=== PATIENT | female | born 2000 | race Caucasian/White ===

== ENCOUNTER 2024-08-09 08:57 | Emergency (ER) | payer OTHER, SELFPAY ==
[2024-08-09 09:08] VITALS: BP 148/91; PULSE 70; RESP 18; TEMP 36.9; O2SAT 99
--- NOTE | 2024-08-09 09:44 | DI.CT_ITS ---
Exam(s) CT HEAD CERV SPINE FACIAL WO EXAM: CT HEAD CERV SPINE FACIAL WO CLINICAL HISTORY: fall 10 steps. TECHNIQUE: Imaging Protocol: Axial computed tomography images with coronal and sagittal reformatted images were created and reviewed COMPARISON: No exams were available for comparison FINDINGS: CT BRAIN: There are no skull fractures some mucosal thickening is noted in the left maxillary sinus, not associ ated with fluid level. There is no evidence of intracranial hemorrhage, mass effect, or shift of midline structures. There are no extra-axial fluid collections. The ventricles are not enlarged or shifted and there is no blo od within the ventricular system nor within the basal cisterns. CT MAXILLOFACIAL BONES: There is no evidence of facial fractures nor evidence of orbital blowout fracture. There is some muc osal thickening in the floor of the left maxillary sinus. No evidence of fracture of the sinus. No evidence of nasal bone fractures. Mandibles intact. TM joints intact. Orbits unremarkable. CT CERVICAL SPINE: There is no evidence of fracture nor listhesis. No significant prevertebral soft tissue swelling. N o facet malalignment evident. No significant osseous lesions evident. IMPRESSION: No acute intracranial findings on this noninfused CT scan of the brain. No evidence of facial nor orbital blowout fractures.Incidentally noted is mucosal thickening in left maxillary sinus. No evidence of sinus fracture. No evidence of cervical spine fracture, malalignment, nor acute compromise of the cervical spinal can al. Report called by myself to ER 08/09/2024 at 11:01 a.m. RADIATION DOSE DELIVERED: 1,488.32mGy.cm Total DLP DATA REPOSITORY: All CT scans at this facility are submitted to the National Radiology Data Registry (NRDR) Dose Index Registry (DIR) with the [employer] (ACR). RADIATION OPTIMIZATION: All CT scans at this facility use at least one of these dose optimization te chniques: automated exposure control; mA and/or kV adjustment per patient size (includes targeted exa ms where dose is matched to clinical indication); or iterative reconstruction.
--- NOTE | 2024-08-09 09:44 | ED.GENADUL_ITS ---
Discharge Plan Disposition Patient Disposition: Home Condition: Good Discharge Details Clinical Impression: Facial trauma, Abrasion of face, Contusion of face, Fall Primary Care Provider: Randi Domingo ED Provider: Fara Govea Home Meds and New Rx's Prescriptions: Continued One-A-Day -1 27 mg iron- 800 mcg-235 mg capsule 1 cap PO DAILY Unisom (doxylamine) 25 mg tablet 25 mg PO QHS PRN Discharge Instructions Instructions: General Trauma, Adult ED Additional Instructions: Your imaging is reassuring, no evidence of fracture, dislocation or internal bleeding. Please continue with Tylenol for discomfort. Encourage gentle range of motion. Heat or ice may also help with discomfort. Please encourage brain rest- plenty of sleep and fluids. Please monitor wounds for signs of infection including increased pain, redness, fevers/chills, discharge. If you develop these or other new/worsening symptoms, please seek care urgently once again. If you develop increased headache, vomiting, visual change or other new/worsneing symptoms, please seek care urgently once again. Please keep upcoming appointment for reevaluation. Referrals: Cyn Cantor MD [ [facility]FF [facility]YSICIAN] - Randi Domingo [Primary Care Provider] - Discharge Data Discharge Date/Time-TO BE ENTERED AT DEPARTURE: 08/09/24 11:28 HPI General Date/Time Provider Initiated Documentation: 08/09/24 09:27 . Limitations to Documentation: no limitations . Information obtained by: patient, family and RN notes reviewed . History of Present Illness 23 year old F presents to the emergency department with the chief complaint of face trauma, headache after fall down stairs, described as moderate, Quality is described as aching, and is localized to the head and face. Patient started experiencing this hour(s) and it has been constant. No relieving factors improve symptom(s), No exacerbating factors reported . Patient notes headaches; denies chest pain, cough, fever/chills, loss of appetite, malaise, nausea/vomiting, seizure, shortness of breath, syncope and weakness. Patient did receive the following treatments prior to arrival, none Related Data Home Medications ?Medication ?Instructions ?Recorded ?Confirmed vit 168-iron 27 mg-folic 1 cap PO DAILY 07/18/24 08/09/24 acid 800 mcg-omega3 235 mg capsule (One-A-Day -1) doxylamine succinate 25 mg tablet 25 mg PO QHS PRN 08/01/24 08/09/24 (Unisom (doxylamine)) Allergies Allergy/AdvReac Type Severity Reaction Status Date / Time shrimp Allergy Other (See Verified 08/09/24 09:10 Comment) General Stated Complaint: Fall/Non TraumaCriteria RADHA: 3 Review of Systems Constitutional Constitutional: Reports as per HPI, Denies chills, Denies fever(s), Reports headache(s) and Denies weakness Eyes Eyes: Reports as per HPI, Denies blurry vision and Denies change in vision ENT Ears, Nose, Mouth, and Throat: Reports headache(s) and Denies neck pain Cardiovascular Cardiovascular: Reports as per HPI, Denies chest pain, Denies lightheadedness, Denies radiating jaw, neck or arm pain, Denies dyspnea and Denies dyspnea on exertion Respiratory Respiratory: Reports as per HPI, Denies chest congestion, Denies cough, Denies dyspnea and Denies dyspnea on exertion Gastrointestinal Gastrointestinal: Reports as per HPI, Denies abdominal pain, Denies change in bowel habits, Denies nausea and Denies vomiting Musculoskeletal Musculoskeletal: Reports as per HPI, Denies back pain, Denies myalgias, Denies muscle cramps, Denies neck pain and Denies numbness Integumentary/Breasts Skin/Breast: Reports as per HPI and Denies rash Neurologic Neurologic: Reports as per HPI, Denies abnormal movements, Denies abnormal speech, Reports headache(s), Denies localized weakness, Denies numbness, Denies sensory deficit and Denies weakness Exam Const General: cooperative, healthy appearing, uncomfortable, no acute distress, well developed and well groomed Nutritional Appearance: average body habitus and well nourished Orientation: alert, awake and oriented x3 [facility] Head: normal to inspection, no palpable skull fracture and normocephalic Ears: hearing grossly normal bilaterally, external ears normal and TM's normal bilaterally General nose exam: external nose normal Face images: 2 1. [id number] abrasion, no active bleeding, swelling around this area 2. superficial abrasion Mouth: oral mucosae normal, oropharynx normal, moist mucous membranes, No mouth trauma, no muffled voice and No restricted motion Teeth and gingiva: dentition normal and gingiva normal Throat: posterior oropharynx normal Eyes General: appearance normal, both eyes and all related structures Alignment and Position: alignment normal Periorbital: periorbital findings normal Eyelids: eyelids normal Sclera: sclerae normal Cornea: corneas normal Pupils: PERRL EOM: EOM intact bilaterally Neck Neck: normal visual inspection, full ROM and no meningeal signs Resp Effort & Inspection: normal respiratory effort, able to speak in complete sentences and no respiratory distress Auscultation: clear to auscultation bilaterally, no rales, no rhonchi and no wheezes Cardio Rate: regular rate Rhythm: regular rhythm Heart Sounds: S1 normal and S2 normal GI Inspection: normal to inspection and non-distended Palpation: soft, not firm, no guarding and nontender Back/Spine/Pelvis Cervical Spine: normal cervical lordosis and cervical ROM normal Thoracic/Lumbar Spine: thoracic and lumbar spine normal to inspection, No thoracic spinal tenderness and No lumbar spinal tenderness Skin General skin exam: no rashes or lesions noted Neuro General: patient alert, patient awake and patient oriented x3 Cranial Nerves: CN's II-XI intact bilaterally Cognition: normal cognition Speech: speech normal Gait: normal gait Motor: muscle tone normal throughout, strength 5/5 throughout, no pronator drift, no movement abnormalities noted and no fasciculations Sensory Exam: no sensory deficits noted Coordination: [id number]-qn-[id number] test normal and fonl-dw-roch test normal Course Vital Signs Vital signs: Vital Signs Temperature 36.9 C 08/09/24 09:08 Pulse 70 08/09/24 09:08 Respiratory Rate 18 08/09/24 09:08 Blood Pressure 148/91 H 08/09/24 09:08 Pulse Oximetry 99 08/09/24 09:08 Temperature 36.9 C 08/09/24 09:08 Temperature Source Temporal Artery Scan 08/09/24 09:08 Pulse 70 08/09/24 09:08 Respiratory Rate 18 08/09/24 09:08 Blood Pressure 148/91 H 08/09/24 09:08 Blood Pressure Position Sitting 08/09/24 09:08 Pulse Oximetry 99 08/09/24 09:08 Oxygen Delivery Method Room Air 08/09/24 09:08 Oxygen Flow Rate 0 08/09/24 09:08 Pain Level 2 08/09/24 09:08 Medical Decision Making Patient is a pleasant 23-year-old female, estimated 9 weeks gestation, brought in by significant other, presenting with chief complaint of head and face pain after falling down 10 steps. Patient reports that she was walking into her car in her crocs this morning when she slipped and fell down about 10 steps landing directly on the right side of her face. She suffered abrasion to the right side of the lower aspect of her jaw and a laceration that is curvilinear around the right zygomatic arch from where her glasses pushed into her face. She denies any visual changes. She states that she has been ambulatory and has not noted any neurologic dysfunction. She denies any visual changes. No nausea or vomiting. She denies any chest pain, shortness of breath, difficulty breathing. No abdominal pain, incontinence of stool or urine, vaginal discharge or cramping. She has not noted any weakness or sensory deficits. States that she continues to have a headache primarily along the left side of her head as well as jaw pain, particular with movement along the left side of her jaw. Patient reports UTD on tetanus. On exam, patient appears nontoxic. She is hemodynamically stable. Neurologic exam is intact. She does have a curvilinear abrasion as well as superficial road rash abrasion under the right side of the jaw. She is swollen on the right side of her face in between these areas but pain is primarily elicited with movement palpation over the left side of the jaw. Not appreciate any difficulty with movement or significant deformity. Bite test is intact. She does not have any palpable skull fractures. No evidence of basilar skull fracture. No midline C-spine tenderness, full range of motion. No pain elsewhere about the spine or with palpation about the chest, abdomen, pelvis. Pelvis is stable and nontender. While patient is , with the negatives of injury as well as the worsening headache, considered intracranial hemorrhage. Also considered facial fracture and will obtain CT. We did discuss risk and benefits of this and patient agrees to move forward. IMPRESSION: No acute intracranial findings on this noninfused CT scan of the brain. No evidence of facial nor orbital blowout fractures.Incidentally noted is mucosal thickening in left maxillary sinus. No evidence of sinus fracture. No evidence of cervical spine fracture, malalignment, nor acute compromise of the cervical spinal canal. Discussed these findings with the patient and her significant other. We discussed supportive care. Abrasions superficial does not require any type of closure. Given the gestational age, unlikely to find any type of heart rate, I do not see indication for ultrasound at this time. We did discuss strict return precautions for this. 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 Strict return precautions were discussed for head injury. Encouraged brain rest. All of her questions and concerns were addressed and patient is in agreement with this plan. This documentation was generated using Emp[employer] dictation system, please disregard any oddities of phrase or misspellings. Quality:SDOH Health Related Social Needs: 2 No Data to Display PFSH All Active Problems (Updated 08/09/24 @ 11:20 by RACHNA Pereira) Fall (Acute) Contusion of face (Acute) Abrasion of face (Acute) Facial trauma (Acute) (Acute) Family History (Updated 07/18/24 @ 09:57 by Corrie Pina CNM) Maternal Grandfather Diabetes Social History (Updated 07/18/24 @ 10:41 by Mago Hoang) Smoking/Tobacco Use Status: Never Smoking risk assessment performed?: Yes Alcohol Intake: former Drug use: Never Substance use type: does not use Household members: significant other Housing: apartment What is your relationship status?: living with partner How often do you attend hoahaoism or gnosticist services?: decline to answer Panel score (0-1 are the most socially isolated patients): 1 What type of physical activity do you participate in: none Do you feel safe at home: Yes Female Reproductive History Menstrual Duration of menses: 3-5 days control method: none History History 2 1 Para Hx # Term Pregnancies Multiple births Hx # Pregnancies Ectopic pregnancies AB induced Hx Number of Living Children AB spontaneous
[2024-08-09] MEDS: Acetaminophen 325 MG TAB 650 MG PO (10:35)
[2024-08-09 11:28] VITALS: BP 132/80; PULSE 106; RESP 18; O2SAT 99
== END 2024-08-09 11:28 | disposition home or self-care (01) ==
PROVIDERS: Emergency Provider Physician Assistant; PCP Nurse Practitioner Family
DX: S00.83XA Contusion of other part of head, initial encounter (principal); W10.8XXA Fall (on) (from) other stairs and steps, initial encounter; S00.81XA Abrasion of other part of head, initial encounter; O26.891 Other specified pregnancy related conditions, first trimester
CPT/HCPCS: 99284; 70450; 70486; 72125; 99283

== ENCOUNTER 2024-08-29 02:57 | Outpatient (CLI) | payer OTHER, SELFPAY ==
[2024-08-29 16:33] LABS: Panorama Kit Sent via Fed Ex
[2024-08-29 16:46] LABS: HCT 35.6 % (36.0-46.0); HGB 12.5 g/dL (11.2-15.7); MCHC 35.1 % (32.0-36.0); MCV 86 fL (80-95); MPV 9.6 fL (8.0-11.0); Platelet Count 227 10^3/uL (130-400); RBC 4.16 10^6/uL (3.93-5.22); RDW 12.1 % (11.7-14.6); RDW-SD 37.6 fL; WBC 10.68 10^3/uL (4.4-10.8)
[2024-08-29 18:43] LABS: ALT 22 U/L (14-59); AST 15 U/L (15-37); Alkaline Phosphatase 53 U/L (46-116); Anion Gap 10.1 mmol/L (3-11); BUN 9 mg/dL (7-18); Bilirubin, Total 0.3 mg/dL (0.2-1.0); CO2 25.9 mmol/L (21.0-32.0); CREATININE 0.6 mg/dL (0.55-1.02); Calcium 9.2 mg/dL (8.5-10.1); Chloride 104 mmol/L (98-107); Estimated GFR 129.27 (mL/min/1.73m2); Glucose 84 mg/dL (74-106); Potassium 3.4 mmol/L (3.5-5.1); Sodium 140 mmol/L (136-145); Total Protein 7.3 g/dL (6.4-8.2); Uric Acid 3.1 mg/dL (2.6-6.0)
[2024-09-01 10:19] LABS: HIV-1/2 Ag & Ab Screen Negative (Negative)
[2024-09-02 09:41] LABS: Rubella IgG Ab (UVM) Positive (See Note); Varicella IgG Antibody Positive (See Note)
[2024-09-02 11:55] LABS: Hepatitis B Surface Ag Negative (Negative)
[2024-09-02 12:33] LABS: Hepatitis C Ab w Rflx HCV PCR Negative (Negative)
[2024-09-02 14:10] LABS: AFP 12.3 ng/mL; Calculated age at EDD 24 years; Cigarette smoking status non-Smoker; GA used in risk estimate Dates estimate; IVF Pregnancy No; Initial or repeat testing Initial testing; Insulin dependent diabetes No; Maternal Weight 189 lbs; Number of Fetuses 1; Prev Pregnancy w/NTD No
[2024-09-02 15:54] LABS: Syphilis IgG w/Reflex Nonreactive (Nonreactive)
[2024-09-12 17:13] LABS: Result Summary NEGATIVE; Specimen WB Whole Blood
== END 2024-08-29 02:58 | disposition home or self-care (01) ==
PROVIDERS: PCP Nurse Practitioner Family; Visit Provider Advanced Practice Midwife
DX: Z34.91 Encounter for supervision of normal pregnancy, unspecified, first trimester
CPT/HCPCS: 36415; 80053; 81220; 81222; 85027; 86787; 86803; 86850; 86900; 86901; 87340; 87389; 82105; 83036; 84443; 84550; 86762; 86780

== ENCOUNTER 2024-08-29 15:54 | Outpatient (REF) | payer OTHER, SELFPAY ==
[2024-08-29 16:37] LABS: COMMENT (LAB VIEW ONLY) 67.59 mg/dL; PROTEIN 8.4 mg/dL; Prot/Crea Ur Ratio 0.12
[2024-09-02 12:45] LABS: Chlamydia Result Negative (Negative); GC Result Negative (Negative)
== END 2024-08-29 15:55 | disposition home or self-care (01) ==
LOC: LBN 15:54
PROVIDERS: PCP Nurse Practitioner Family; Visit Provider Advanced Practice Midwife
DX: Z34.91 Encounter for supervision of normal pregnancy, unspecified, first trimester
CPT/HCPCS: 87491; 87591; 82565; 84156; 87086

== ENCOUNTER 2024-09-25 02:58 | Outpatient (CLI) | payer OTHER, SELFPAY ==
[2024-09-26 16:14] LABS: AFP 23.3 ng/mL; Calculated age at EDD 24 years; Cigarette smoking status non-Smoker; GA used in risk estimate Dates estimate; IVF Pregnancy No; Initial or repeat testing Initial testing; Insulin dependent diabetes No; Maternal Weight 189 lbs; Number of Fetuses 1; Physician Phone Number 802-748-7300; Prev Pregnancy w/NTD No; RECOMMENDED FOLLOW UP None.; Results Summary Normal risk
== END 2024-09-25 02:59 | disposition home or self-care (01) ==
LOC: LBO 02:58
PROVIDERS: Advanced Practice Midwife; PCP Nurse Practitioner Family; Visit Provider Advanced Practice Midwife
DX: Z34.91 Encounter for supervision of normal pregnancy, unspecified, first trimester (principal)
CPT/HCPCS: 36415; 82105

== ENCOUNTER 2024-11-21 07:15 | Emergency (ER) | payer OTHER, SELFPAY ==
[2024-11-21 07:16] VITALS: BP 144/81; PULSE 81; RESP 17; TEMP 36.8; O2SAT 100
--- NOTE | 2024-11-21 07:21 | ED.GENADUL_ITS ---
Discharge Plan Disposition Patient Disposition: Admit to [facility] Discharge Details Clinical Impression: Vaginal bleeding in Primary Care Provider: Randi Domingo ED Provider: Yevgeniy Lin Home Meds and New Rx's Prescriptions: Continued One-A-Day -1 27 mg iron- 800 mcg-235 mg capsule 1 cap PO DAILY Unisom (doxylamine) 25 mg tablet 25 mg PO QHS PRN Discharge Data Discharge Date/Time-TO BE ENTERED AT DEPARTURE: 11/21/24 09:04 HPI General Date/Time Provider Initiated Documentation: 11/21/24 07:21 . HPI Narrative: MDM This is an overall very well-appearing very mildly hypertensive but not tachycardic 23-year-old G1, P0 at 24 weeks with vaginal bleeding for which patient will receive type and screen to assess need for RhoGAM and CBC to assess for anemia. Patient has had previous ultrasound in the system showing a si ngle intrauterine with a gestational age of 19 weeks 5 days as completed last month. As result I am not concerned with placenta previa. No history of IV drug use to suggest increased risk for placental abruption. Patient is approximately 24 weeks so we will touch base with the midwives as patient may require nonstress test and monitoring. No vaginal trauma to suggest benefit from speculum exam. Patient having mild cramping so my suspicion for uterine rupture is low. No sudden villarreal of fluid to suggest labor. No pain with bleeding to suggest vasa previa. Reassuring heart rate making my suspicion low for intrauterine demise. 9 AM Patient had a reassuring hemoglobin. I was in touch with Dr. Baltazar from the obstetrical team who graciously agreed to accept the patient upstairs for ongoing monitoring. Will send patient with her IV in place. History of Present Illness The patient presents for evaluation of vaginal bleeding and cramping. Patient is a at 24 weeks with vaginal bleeding, necessitating the use of a light pad that requires changing approximately every hour. The bleeding is more pronounced during urination. She has not experienced any episodes of syncope. She reports intermittent lower abdominal cramping. She is not on any anticoagulant therapy and does not have a history of diabetes or hypertension. She has not experienced any trauma to the abdomen, respiratory distress, or headaches. She reports a sensation of impending vomiting but has not actually vomited. She has not consumed any food. She does not have any chest pain. This is her first experience of such symptoms during her current . She follows with the midwives and has had reassuring ultrasounds thus far. Exam General: Well-appearing in no acute distress speaking in complete sentences. Head: Normocephalic, atraumatic. Eye: Extraocular eye movements intact. No conjunctival injection. No scleral icterus. Ear, nose, mouth, throat: Grossly normal inspection. Normal voice, handling secretions normally. Neck: Trachea midline. Cardiovascular: Well-perfused distal extremities. Respiratory: Nonlabored respiration. Gastrointestinal: Nondistended abdomen. Soft. Gravid uterus. Nontender. No gross vaginal bleeding observed on external inspection with patient wearing underwear on the stretcher. Musculoskeletal: No edema. Moving all 4 extremities spontaneously. Skin: Normal for age and race, grossly normal temperature and turgor. No acute rash. Neurologic: Alert and appropriate, no apparent acute deficits. Psychiatric: Mood and manner are appropriate. Grooming and personal hygiene are appropriate. 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 Course Vital Signs Vital signs: Vital Signs Temperature 36.8 C 11/21/24 07:16 Pulse 81 11/21/24 07:16 Respiratory Rate 17 11/21/24 07:16 Blood Pressure 144/81 H 11/21/24 07:16 Pulse Oximetry 100 11/21/24 07:16 Temperature 36.8 C 11/21/24 07:16 Temperature Source Oral 11/21/24 07:16 Pulse 81 11/21/24 07:16 Respiratory Rate 17 11/21/24 07:16 Blood Pressure 144/81 H 11/21/24 07:16 Blood Pressure Position Sitting 11/21/24 07:16 Pulse Oximetry 100 11/21/24 07:16 Oxygen Delivery Method Room Air 11/21/24 07:16 Oxygen Flow Rate 0 11/21/24 07:16 Pain Level 8 11/21/24 07:16 Medical Decision Making Quality:SDOH Health Related Social Needs: No Data to Display PFSH All Active Problems (Updated 11/21/24 @ 12:26 by Isela Baltazar MD) delivery (Acute) Spontaneous @24.4wks Family history of defect (Acute) FOB with unilateral kidney agenesis FOB's sibling stillborn with bilateral kidney agenesis first cousin with microcephaly Elevated BP without diagnosis of hypertension (Acute) 08/09/24: 140s/90s Medical History (Updated 11/21/24 @ 12:26 by Isela Baltazar MD) labor Family History (Updated 08/29/24 @ 14:49 by Corrie Pina CNM) Maternal Grandfather Diabetes Paternal Grandfather Diabetes Father Diabetes Social History (Updated 08/29/24 @ 14:56 by Corrie Pina CNM) Smoking/Tobacco Use Status: Never Smoking risk assessment performed?: Yes Alcohol Intake: former Drug use: Never Substance use type: does not use Household members: significant other Housing: house Education Level: high school Do you need help understanding health information?: Never 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) Pets and animals: Yes (3 dogs) Sexually active: Yes Do you think of yourself as: straight/heterosexual Current gender identity: female What is your relationship status?: living with partner How often do you attend mandaeism or presybeterian services?: decline to answer Panel score (0-1 are the most socially isolated patients): 1 What type of physical activity do you participate in: none Special neville needs: No Seatbelt use: always Helmet use: Yes Do you feel safe at home: Yes Do you feel safe in your relationship?: Yes Victim of physical abuse: No Victim of emotional abuse: No Victim of sexual abuse: No Female Reproductive History Menstrual Age of Menarche: 13 Duration of menses: 3-5 days control method: none History History 1 Para 0 Hx # Term Pregnancies 0 Multiple births 0 Hx # Pregnancies 0 Ectopic pregnancies 0 AB induced 0 Hx Number of Living Children 0 AB spontaneous 0 POCUS Exam (ED) Limited OB Exam DATE OF EXAM:: 11/21/24 TIME OF EXAM:: 07:39 PROVIDER THAT PERFORMED THE STUDY: Yevgeniy Lin IS THIS A REPEAT EXAM DURING THIS ENCOUNTER: No Type of Exam: Pelvic OB Trans Abdominal REASON FOR EXAM: Vaginal Bleeding Exam Complete ( heart rate 154 bpm.). INCIDENTAL FINDINGS: heart rate 154 bpm Limited Pelvic Exam DATE OF EXAM: 11/21/24 TIME OF EXAM: 07:30 PROVIDER THAT PERFORMED THE STUDY: Yevgeniy Lin IS THIS A REPEAT EXAM DURING THIS ENCOUNTER: No Type of Exam: Pelvic Trans Abdominal Exam REASON FOR EXAM: Other indication: VISUALIZED STRUCTURES: Uterus PERTINENT FINDINGS/IMPRESSION: Other impression: heart rate [ ] beats per minute Exam Complete
[2024-11-21 07:55] LABS: Abs Immature Grans 0.08 10^3/uL (0.0-0.06); Absolute Basophil Count 0.03 10^3/uL (0.0-0.2); Absolute Monocyte Count 0.93 10^3/uL (0.1-0.8); Absolute Neutrophil Count 13.99 10^3/uL (1.2-6.7); Basophils % 0.2 %; Eosinophils % 0.4 %; HCT 33.4 % (36.0-46.0); HGB 11.4 g/dL (11.2-15.7); Immature Grans % 0.5 %; Lymphocytes % 6.2 %; MCH 29.7 pg (27.0-33.0); MCHC 34.1 % (32.0-36.0); MCV 87 fL (80-95); MPV 9.3 fL (8.0-11.0); Monocytes % 5.8 %; Neutrophils % 86.9 %; Platelet Count 175 10^3/uL (130-400); RBC 3.84 10^6/uL (3.93-5.22); RDW 11.9 % (11.7-14.6); RDW-SD 37.8 fL
[2024-11-21 07:56] LABS: Absolute Eosinophil Count 0.06 10^3/uL (0.0-0.7)
[2024-11-21 08:36] LABS: BUN 8 mg/dL (7-18); CREATININE 0.4 mg/dL (0.55-1.02); Calcium 8.7 mg/dL (8.5-10.1); Chloride 102 mmol/L (98-107); Estimated GFR 142.54 (mL/min/1.73m2); Glucose 90 mg/dL (74-106); HCG Quant, Pregnancy 8812 mIU/mL (1-3); Potassium 3.4 mmol/L (3.5-5.1); Sodium 137 mmol/L (136-145)
[2024-11-21 09:06] VITALS: BP 115/57; PULSE 72; RESP 16; TEMP 36.8; O2SAT 98
== END 2024-11-21 09:04 | disposition short-term general hospital (02) ==
PROVIDERS: Emergency Provider Emergency Medicine; PCP Nurse Practitioner Family
DX: O26.852 Spotting complicating pregnancy, second trimester (principal); Z3A.24 24 weeks gestation of pregnancy
CPT/HCPCS: 36415; 76815; 76857; 80048; 86850; 86900; 86901; 99284; 84702; 85025

== ENCOUNTER 2024-11-21 10:17 | Inpatient (IN) | payer OTHER, SELFPAY ==
[2024-11-21] VITALS (11 sets, daily range): BP systolic 111–129; BP diastolic 65–84; PULSE 71–106; RESP 16; TEMP 36.9
--- NOTE | 2024-11-21 10:10 | PLAC_PTH ---
PATIENT: Abi Alonso LOC: OBS U#:[id number] AGE/SX: 23/F ROOM: OBS.303 RE11/21/[address]: Isela Baltazar MD : 2000 BED: A DIS: 11/21/2024 SPEC #: [id number] RECD: 11/21/24 13:08 STATUS: MARIZA REQ #: [id number] SAMIRA: 11/21/24 10:[address]: Isela Baltazar DEPT: Surgical Specimen RECD BY: Marlee Novak ENTERED: 11/21/24 13:09 SP TYPE: PLAC OTHR DR: Randi Domingo Tissues: 1 - PLACENTA (NOT 3RD TRIMESTER) Procedures: GROSS AND MICRO LEVEL 4 Comments: [id number]
[2024-11-21 10:50] LABS: HCT 33.7 % (36.0-46.0); HGB 11.6 g/dL (11.2-15.7); MCH 30.1 pg (27.0-33.0); MCHC 34.4 % (32.0-36.0); MCV 88 fL (80-95); MPV 9.4 fL (8.0-11.0); Platelet Count 175 10^3/uL (130-400); RBC 3.85 10^6/uL (3.93-5.22); RDW 11.9 % (11.7-14.6); RDW-SD 38.3 fL; WBC 17.48 10^3/uL (4.4-10.8)
--- NOTE | 2024-11-21 10:58 | W.PM.OBHPL1 ---
Date of service: 11/21/24 Time of Service: 09:45 Assessment and Plan Assessment and plan (1) labor: Status: Acute Assessment and plan: P0 @24.4wks in labor s/p ROM with impending delivery. Rh neg. Peds, supervisor finishing room, anesthesia, NICU notified. Preparations for delivery made. OB-HPI Labor/Delivery History of Present Illness Reason for Visit: labor Chief Complaint: Suspected Rupture of Membranes , Associated Signs and Symptoms of Suspected ROM: gush of blood tinged fluid ; Vaginal Bleeding , Associated Signs and Symptoms of Vaginal Bleeding: spotting. PHIL Calculator Estimated Delivery Date Method WG Current Estimate 03/09/25 LMP (Certain) Other Estimates 03/14/25 Ultrasound #1 Infant Delivery Date-Baby A 11/21/24 24w 4d Comments: Pt reports having spotting x1 yesterday and the day before. Then overnight last night she was feeling a little crampy. This am she noticed a little more bleeding and put a pad on and went to the ED. She was evaluated in the ED and found to be stable so the plan was to transfer to the center for monitoring. As she stood up to move to the wheelchair she experienced a gush of blood-tinged fluid. By arrival to L&D she had soaked through a pad. Her contractions became much stronger after that. History of Present Expected Delivery Route/Plan - CNM FOB - Francis (first child) BG Specific Issues/Plan 1. elevated BP(x1) without HTN diagnosis - Baseline CMP & pr/cr=nml, Baby ASA 12 wks 2. FOB with kidney agensis and fam hx microcephaly. MFM consult + Level 2 US ordered 3. Family hx diabetes, [id number]=4.0 4. AFP drawn at 12+3 wks, redraw at 16 wks=nml risk for NTD 5. cfDNA low risk female, CF negative Review of Systems Genitourinary Genitourinary: Reports system reviewed and no additional complaints, except as documented PFSH All Active Problems (Updated 11/21/24 @ 12:11 by Isela Baltazar MD) labor (Acute) Family history of defect (Acute) FOB with unilateral kidney agenesis FOB's sibling stillborn with bilateral kidney agenesis first cousin with microcephaly Elevated BP without diagnosis of hypertension (Acute) 08/09/24: 140s/90s Medical History (Updated 11/21/24 @ 12:11 by Isela Baltazar MD) Family History (Updated 08/29/24 @ 14:49 by Corrie Pina CNM) Maternal Grandfather Diabetes Paternal Grandfather Diabetes Father Diabetes Social History (Updated 08/29/24 @ 14:56 by Corrie Pina CNM) Smoking/Tobacco Use Status: Never Smoking risk assessment performed?: Yes Alcohol Intake: former Drug use: Never Substance use type: does not use Household members: significant other Housing: house Education Level: high school Do you need help understanding health information?: Never 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) Pets and animals: Yes (3 dogs) Sexually active: Yes Do you think of yourself as: straight/heterosexual Current gender identity: female What is your relationship status?: living with partner How often do you attend protestant or anabaptism services?: decline to answer Panel score (0-1 are the most socially isolated patients): 1 What type of physical activity do you participate in: none Special neville needs: No Seatbelt use: always Helmet use: Yes Do you feel safe at home: Yes Do you feel safe in your relationship?: Yes Victim of physical abuse: No Victim of emotional abuse: No Victim of sexual abuse: No Female Reproductive History Menstrual Age of Menarche: 13 Duration of menses: 3-5 days control method: none History History 1 Para 0 Hx # Term Pregnancies 0 Multiple births 0 Hx # Pregnancies 0 Ectopic pregnancies 0 AB induced 0 Hx Number of Living Children 0 AB spontaneous 0 Meds Allergies and Home Medications Allergies Allergy/AdvReac Type Severity Reaction Status Date / Time shrimp Allergy Other (See Verified 11/21/24 07:21 Comment) Home Medications ?Medication ?Instructions ?Recorded ?Confirmed ?Type vit 168-iron 27 mg-folic 1 cap PO DAILY 07/18/24 11/21/24 History acid 800 mcg-omega3 235 mg capsule (One-A-Day -1) doxylamine succinate 25 mg tablet 25 mg PO QHS PRN 08/01/24 11/21/24 History (Unisom (doxylamine)) Exam Physical Exam Vital signs: Pulse BP 78 111/76 11/21/24 10:50 11/21/24 10:50 Vital Signs Reviewed: Yes Detailed Labor and Delivery Exam Maxwell Score: Cervical Points Exam 0 1 2 3 Dilation Closed 1-2cm 3-4 cm 5-6cm Effacement 0-30% 40-50% 60-70% 80% Consistency Firm Medium Soft Station -3 -2 -1,0 +1,+2 Position Posterior Mid Anterior Comments: Fetus A Date of Membrane Rupture: 11/21/24 Time of Membrane Rupture: 09:20 Assessment Note: Intermittent heart rate checks found to be 150-170 Detailed HEENT Exam Head: Present normocephalic and atraumatic Detailed Abdominal Exam Comments: gravid, nontender Detailed Exam Comments: On insertion of the speculum there was bloody fluid. After it was swabbed out, the head was noted and found to be at +2 station. Detailed Neurological Exam Neurological: Present alert, oriented X3 and CN II-XII intact DetailedPsychiatric Exam Psychiatric: Present normal affect, normal thought process and cooperative Results Results Group Beta Strep: Not Done Blood Type: B+ Rubella Status: Immune Varicella Immunity: Immune Abnormal Lab Findings: Abnormal Labs 11/21/24 10:38 WBC 17.48 H RBC 3.85 L Hct 33.7 L Risk Assessment Risk for Shoulder Dystocia Historical/Initial OB: POSITIVE FOR: Pre- BMI>30 Risk for Pre-Eclampsia Date Initiated/Initials: to start at 12 wks. Yes, if one or more: NEGATIVE FOR: Hx Pre-E/Gest HTN, Chronic HTN, Multiple Gestation, Pre-gestational DM, Renal Disease, Systemic Lupus or APA Syndrome Yes, if 2 or more: POSITIVE FOR: Nulliparity and BMI>30; NEGATIVE FOR: Age>= 35 yrs, >10yr btwn pregnancies, ethinicty, Mother/Sister w/ Pre-E or Previous IUGR Risk for Post- Hemorrhage Initial: NEGATIVE FOR: Multiple Gestation, Previous PPH, Known Clotting Deficiency, Grand Multiparity or Anticoagulation Risks Reviewed Risks Reviewed Upon Admission: Yes
[2024-11-21 11:09] LABS: ALT 16 U/L (14-59); AST 18 U/L (15-37); Alkaline Phosphatase 81 U/L (46-116); Anion Gap 9.5 mmol/L (3-11); BUN 8 mg/dL (7-18); Bilirubin, Total 0.3 mg/dL (0.2-1.0); CO2 23.5 mmol/L (21.0-32.0); CREATININE 0.6 mg/dL (0.55-1.02); Calcium 9.1 mg/dL (8.5-10.1); Chloride 101 mmol/L (98-107); Estimated GFR 129.27 (mL/min/1.73m2); Glucose 98 mg/dL (74-106); Potassium 3.5 mmol/L (3.5-5.1); Sodium 134 mmol/L (136-145); Total Protein 6.9 g/dL (6.4-8.2)
[2024-11-21] MEDS: Acetaminophen 325 MG TAB (11:20)
[2024-11-21] MEDS: Ibuprofen 600 MG TAB (11:21)
[2024-11-21] MEDS: Oxytocin/Normal Saline 30 UNITS/500 ML BAG 334 UNITS IV (11:40)
--- NOTE | 2024-11-21 12:13 | W.OBDELIVERY ---
Date of service: 11/21/24 Time of Service: 10:02 OB Labor/ Delivery Information Baby A Delivery Delivery Method: Spontaneaous Presentation: Vertex Cord Description-Baby A: 3 Vessels Amniotic Fluid: [place] Tinged Estimated Blood Loss: 150 Delivery Outcome: Liveborn Infant Complications: Infant Transferred: Other ([facility] to transfer to [facility] [place]) Providers Doctor: Isela Baltazar [employer] Fleshing Machine Operator: Kathy Westbrook Nurse: Melinda Mccabe Nurse: Juan Miguel Brito Other: Kylah De Anda Labor/Delivery Information Number of Babies in Womb: 1 Steroids Given: None Reason Steroids Not Administered: Imminent Delivery Group Beta Strep: Not Done Antibiotics Administered: No Rubella Status: Immune Blood Type: B+ Varicella Immunity: Immune Maternal Complications: Precipitous Labor(<3hrs) and Other Shoulder Dystocia: Yes Note: The pt was found to be fully dilated. All the appropriate personnel were called. When pt couldn't stop pushing, she pushed once to deliver the quickly over intact perineum. The cord was clamped x2 and cut and the baby was taken to the warmer. The pediatricians were available. Cord blood was collected. Attempts were made to collect cord gasses but there was only enough blood for venous. The placenta delivered with gentle cord traction and fundal massage and appeared intact. Fundus was firm with good hemostasis. Mom stable at time of note. Baby undergoing resuscitation. Stages of Labor Onset of Labor Date: 11/20/24 Onset of Labor Time: 19:00 Complete Dilatation Date: 11/21/24 Complete Dilatation Time: 09:40 Labor - Stage 1 Duration: 14 hours and 40 minutes ROM Baby A: 11/21/24 ROM Baby A: 09:20 ROM Total Time- Baby A: [id number] Delivery Date-Baby A: 11/21/24 Infant Delivery Time-Baby A: 10:02 Labor Stage 2 Duration: 22 minutes Placenta Delivery Date-Baby A: 11/21/24 Placenta Delivery Time-Baby A: 10:10 Labor-Stage 3 Duration: 8 minutes Total Length of Labor-Baby A: 15 hours and 2 minutes Placenta Status: Delivered Baby A Infant Gender: Female Gestational Status: (<34 wks) Gestational Age in Weeks/Days: 24 Weeks and 4 Days weight: 1 lb 8.515 oz Score-1 Minute Interval(Baby A) Heart Rate-1 minute: Below 100 BPM Respiratory Effort- 1 minute: No Spontaneous Effort Muscle Tone-1 minute: Limp Reflex Response-1 minute: No Response Color-1 minute: Pallor or Cyanosis Total Score-1 minute: 1 Score-5 Minute Interval(Baby A) Heart Rate- 5 minute: 100 BPM or Greater Respiratory Effort-5 minute: No Spontaneous Effort Muscle Tone-5 minute: Limp Reflex Response-5 minute: Minimal Response Color-5 minute: Bluish Hands or Feet Total Score- 5 minute: 4
--- NOTE | 2024-11-21 12:24 | DSE_ITS ---
Date of service: 11/21/24 Time of Service: 12:24 DS: Diagnosis Discharge Diagnosis (1) labor: Asessment and Plan: Pt is a 23yo s/p spontaneous PTL and delivery @24.4wks now being transferred to [facility] to be near her infant. No complications with placental delivery and mom stable at time of note. Discharge Plan Disposition Condition: Stable Discharge Details Reason For Visit: labor Admit Date/Time: 11/21/24 10:17 Admit Provider: Isela Baltazar Attending Provider: Isela Baltazar [facility]: Pt came to the ED due to some vaginal spotting. She was evaluated with minimal bleeding and minor cramping but was relatively stable. Then, as she stood to move to the wheelchair to go to L&D for further monitoring she broke her water and proceeded to have a precipitous delivery at 24.4wks. She was uncomplicated otherwise and will be transported to be with her baby. Home Meds and New Rx's Prescriptions: No Action One-A-Day -1 27 mg iron- 800 mcg-235 mg capsule 1 cap PO DAILY Unisom (doxylamine) 25 mg tablet 25 mg PO QHS PRN Discharge Instructions Activity:: Nothing in the vagina Diet:: As Tolerated OB:DS Summary Summary Vaginal Delivery Method: Spontaneaous Episiotomy Description: None Laceration Description: None Laceration Extension: N/A Contraception Discussed Contraception Discussed: No, Gender-Baby A: Female weight: 1 lb 8.515 oz Status at Discharge Functional status at discharge: bed bound Overall status at discharge: patient is back to baseline Mental Status: mental status grossly normal Speech and Movement: speech and movement normal Mood: congruent mood Affect: normal affect Quality:SDOH Health Related Social Needs: No Data to Display Exam Physical Exam Vital signs: Temp Pulse Resp BP 98.4 F 79 16 126/79 11/21/24 11:21 11/21/24 11:50 11/21/24 10:48 11/21/24 11:50 Vital Signs Reviewed: Yes PFSH All Active Problems (Updated 11/21/24 @ 12:26 by Isela Baltazar MD) delivery (Acute) Spontaneous @24.4wks Family history of defect (Acute) FOB with unilateral kidney agenesis FOB's sibling stillborn with bilateral kidney agenesis first cousin with microcephaly Elevated BP without diagnosis of hypertension (Acute) 08/09/24: 140s/90s Medical History (Updated 11/21/24 @ 12:26 by Isela Baltazar MD) labor Family History (Updated 08/29/24 @ 14:49 by Corrie Pina CNM) Maternal Grandfather Diabetes Paternal Grandfather Diabetes Father Diabetes Social History (Updated 08/29/24 @ 14:56 by Corrie Pina CNM) Smoking/Tobacco Use Status: Never Smoking risk assessment performed?: Yes Alcohol Intake: former Drug use: Never Substance use type: does not use Household members: significant other Housing: house Education Level: high school Do you need help understanding health information?: Never 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) Pets and animals: Yes (3 dogs) Sexually active: Yes Do you think of yourself as: straight/heterosexual Current gender identity: female What is your relationship status?: living with partner How often do you attend nondenominational or nondenominational services?: decline to answer Panel score (0-1 are the most socially isolated patients): 1 What type of physical activity do you participate in: none Special neville needs: No Seatbelt use: always Helmet use: Yes Do you feel safe at home: Yes Do you feel safe in your relationship?: Yes Victim of physical abuse: No Victim of emotional abuse: No Victim of sexual abuse: No Female Reproductive History Menstrual Age of Menarche: 13 Duration of menses: 3-5 days control method: none History History 1 Para 0 Hx # Term Pregnancies 0 Multiple births 0 Hx # Pregnancies 0 Ectopic pregnancies 0 AB induced 0 Hx Number of Living Children 0 AB spontaneous 0 DS: Data Vitals/I&O Vitals and I&O: Vital Signs Temperature 98.4 F 11/21/24 11:21 Pulse 79 11/21/24 11:50 Respiratory Rate 16 11/21/24 10:48 Blood Pressure 126/79 11/21/24 11:50 Oxygen Delivery Method Room Air 11/21/24 10:48 Oxygen Flow Rate 0 11/21/24 10:48 Intake & Output 11/20/24 11/21/24 11/21/24 23:59 11:59 23:59 Weight 195 lb Data Completed and Pending Labs on day of discharge: Labs from last 24 hours 11/21/24 11/21/24 11/21/24 Unknown 10:38 10:17 WBC Cancelled 17.48 H RBC Cancelled 3.85 L Hgb Cancelled 11.6 Hct Cancelled 33.7 L MCV Cancelled 88 MCH Cancelled 30.1 MCHC Cancelled 34.4 RDW Cancelled 11.9 Plt Count Cancelled 175 MPV Cancelled 9.4 Sodium 134 L Potassium 3.5 Chloride 101 Carbon Dioxide 23.5 Anion Gap 9.5 BUN 8 Creatinine 0.6 Est GFR (CKD-EPI 2020) 129.27 Glucose 98 Calcium 9.1 Total Bilirubin 0.3 AST 18 ALT 16 Alkaline Phosphatase 81 Total Protein 6.9 Albumin 3.0 L ABO/Rh Cancelled Antibody Screen Cancelled
== END 2024-11-21 13:20 | disposition short-term general hospital (02) | DRG 807 ==
LOC: OBS 10:23
PROVIDERS: Obstetrics & Gynecology; Admitting Provider Obstetrics & Gynecology; PCP Nurse Practitioner Family; Visit Provider Obstetrics & Gynecology
DX: Z37.0 Single live birth; Z3A.24 24 weeks gestation of pregnancy; O60.12X0 Preterm labor second trimester with preterm delivery second trimester, not applicable or unspecified; O26.892 Other specified pregnancy related conditions, second trimester; Z67.91 Unspecified blood type, Rh negative; O42.012 Preterm premature rupture of membranes, onset of labor within 24 hours of rupture, second trimester; O62.3 Precipitate labor
CPT/HCPCS: 36415; 80053; 85027; 86850; 86900; 86901; 88305

== ENCOUNTER 2025-01-02 14:44 | Outpatient (REF) | payer MEDICAID, SELFPAY ==
[2025-01-03 11:53] LABS: Chlamydia Result Negative (Negative); GC Result Negative (Negative)
== END 2025-01-02 14:45 | disposition home or self-care (01) ==
LOC: LBN 14:44
PROVIDERS: PCP Nurse Practitioner Family; Visit Provider Obstetrics & Gynecology
DX: Z39.2 Encounter for routine postpartum follow-up (principal)
CPT/HCPCS: 87491; 87591